=== PATIENT | female | born 1970 | race Two or more races ===

== ENCOUNTER 2022-07-16 08:51 | Day surgery (SDC) | payer SELFPAY ==
[2022-07-10 11:53] VITALS: BMI 33.5
[~2022-07-16 08:51] MED LIST: HEPARIN NA (PORCINE) 5,000 UNITS/ML 1ML VIAL SQ ONE; LACTATED RINGERS SOLUTION 1,000 ML IV SCH; ONDANSETRON 4 MG/2 ML VIAL IVPUSH PRN
[2022-07-16] MEDS ORDERED: MIDAZOLAM HCL 2 MG/2 ML SINGLE DOSE VIAL ONE (10:30)
[2022-07-16] MEDS ORDERED: HEPARIN NA (PORCINE) 5,000 UNITS/ML 1ML VIAL ONE (10:38)
[2022-07-16] MEDS ORDERED: EPINEPHrine/PF 1 MG/1 ML (1:1,000) AMPULE ONE (10:50)
[2022-07-16] MEDS ORDERED: BACITRACIN ZINC 15 GM TUBE TOPICAL OINTMENT ONE (10:50)
[2022-07-16] MEDS ORDERED: BUPIVACAINE LIPOSOME/PF (EXPAREL) 266 MG/20 ML VIAL ONE (10:51)
[2022-07-16] MEDS ORDERED: BUPIVACAINE HCL/PF 2.5 MG/ML - 30 ML VIAL IJ ONE (10:53)
[2022-07-16] MEDS ORDERED: BUPIVACAINE HCL/PF 0.25% (2.5MG/ML) 10 ML VIAL ONE (10:53)
[2022-07-16] MEDS ORDERED: ROCURONIUM BROMIDE 50 MG/5 ML SYRINGE ONE (11:38)
[2022-07-16] MEDS ORDERED: NEOSTIGMINE METHYLSULFATE 0.5 MG/1 ML - 10 ML MDV ONE (12:59)
[2022-07-16] MEDS ORDERED: GLYCOPYRROLATE 0.2 MG/1 ML VIAL ONE (13:00)
[2022-07-16] MEDS ORDERED: ceFAZolin SODIUM 1 GM VIAL ONE (14:22)
[2022-07-16] MEDS ORDERED: morphine CARPU-JECT 2 MG/1 ML DISP.SYRIN IVPUSH PRN (15:39)
[2022-07-16] MEDS ORDERED: ONDANSETRON 4 MG/2 ML VIAL IVPB PRN (15:39)
[2022-07-16] MEDS ORDERED: ACETAMINOPHEN 1000 MG/100 ML BAG IVPB PRN (15:39)
[2022-07-16] MEDS ORDERED: LACTATED RINGERS SOLUTION 1,000 ML IV SCH (15:45)
[2022-07-16] MEDS: oxyCODONE HCL 5 MG TABLET PO PRN ×2 (17:28→21:37)
[2022-07-16] MEDS: CEFAZOLIN 1 GM in DEXTROSE 5%-WATER - 50 ML IVPB SCH (17:47)
[2022-07-17] MEDS: CEFAZOLIN 1 GM in DEXTROSE 5%-WATER - 50 ML IVPB SCH ×2 (02:00→09:33)
[2022-07-17] MEDS: oxyCODONE HCL 5 MG TABLET PO PRN ×2 (04:52→08:13)
[2022-07-17 05:03] VITALS: RESP 18
[2022-07-17] MEDS ORDERED: HEPARIN NA (PORCINE) 5,000 UNITS/ML 1ML VIAL SQ SCH (08:00)
[2022-07-17] MEDS: amLODIPine BESYLATE 5 MG TABLET (FP) PO SCH ×2 (08:11→09:32)
[2022-07-17 09:12] VITALS: BP 98/71; PULSE 78; TEMP 98.7
== END 2022-07-17 10:50 | disposition home or self-care (01) ==
LOC: FASU 08:51 → FASUSAT 08:51 → FM/S 16:34 → FASUSAT 07-17 10:50
PROVIDERS: ATTEND Plastic Surgery
PROC: 0W0F0ZZ Alteration of Abdominal Wall, Open Approach (ICD-10-PCS; principal; 2022-07-16 11:40)
PROC: 0J083ZZ Alteration of Abdomen Subcutaneous Tissue and Fascia, Percutaneous Approach (ICD-10-PCS; 2022-07-16 11:40)
DX: E88.1 Lipodystrophy, not elsewhere classified (principal)
CPT/HCPCS: 81025; 87426; 94760; J1644

== ENCOUNTER 2024-08-12 07:57 | Day surgery (SDC) | payer OTHER ==
[2024-08-10 13:01] VITALS: BMI 37.7
[2024-08-12] MEDS ORDERED: LIDOCAINE HCL/PF 2% SDV 5ML VIAL ONE (08:02)
[2024-08-12] MEDS ORDERED: PROPOFOL 160 ML ONE (08:02)
[2024-08-12] MEDS ORDERED: ONDANSETRON 4 MG/2 ML VIAL ONE (08:11)
[2024-08-12] MEDS ORDERED: GLYCOPYRROLATE 0.2 MG/1 ML VIAL ONE (08:11)
[2024-08-12 11:16] VITALS: BP 118/77; PULSE 74; RESP 19; TEMP 98
== END 2024-08-12 09:05 | disposition home or self-care (01) ==
LOC: FASU-ENDO 07:57
PROVIDERS: ATTEND Internal Medicine Gastroenterology
PROC: 0DB68ZX Excision of Stomach, Via Natural or Artificial Opening Endoscopic, Diagnostic (ICD-10-PCS; 2024-08-12)
PROC: 0DB98ZX Excision of Duodenum, Via Natural or Artificial Opening Endoscopic, Diagnostic (ICD-10-PCS; principal; 2024-08-12 08:29)
DX: K29.50 Unspecified chronic gastritis without bleeding (principal)
CPT/HCPCS: 88305-TC; 88342-TC